=== PATIENT | female | born 1965 | race American Indian/Alaskan Native ===

== ENCOUNTER 2020-08-25 14:49 | Outpatient (CLI) | payer BC ==
[2020-08-25 15:29] LABS: Basophils % (Auto) 0.6 % (0.0-1.8); Eosinophils # (Auto) 0.1 K/mm3 (0.0-0.4); Eosinophils % (Auto) 1.2 % (0.0-4.3); Hematocrit 35.4 % (30.3-42.9); Hemoglobin 12.3 gm/dl (10.1-14.3); Lymphocytes # (Auto) 2.7 K/mm3 (1.2-5.4); Lymphocytes % (Auto) 34.4 % (13.4-35.0); Mean Corpuscular HGB Conc 35 % (30-34); Mean Corpuscular Volume 89 fl (79-97); Monocytes # (Auto) 0.6 K/mm3 (0.0-0.8); Monocytes % (Auto) 7.1 % (0.0-7.3); Platelet Count 207 K/mm3 (140-440); Red Blood Count 3.97 M/mm3 (3.65-5.03); Red Cell Distribution Width 14.7 % (13.2-15.2)
[2020-08-25 15:53] LABS: Erythrocyte Sedimentation Rate 34 mm/Hr (0-20)
[2020-08-30 23:45] LABS: ANA Screen, IFA Positive (Negative)
== END 2020-08-25 14:50 | disposition home or self-care (01) ==
LOC: LAB 14:49
PROVIDERS: ATTEND Orthopaedic Surgery
DX: M10.9 Gout, unspecified (principal); M13.80 Other specified arthritis, unspecified site
CPT/HCPCS: 36415; 84550; 85025; 85652; 86038; 86431